=== PATIENT | male | born 1975 | race Caucasian/White ===

== ENCOUNTER 2020-08-03 13:04 | Outpatient (CLI) | payer OTHER ==
--- NOTE | 2020-08-03 13:40 | ULT ---
Exam: Bilateral renal ultrasound HISTORY: Chronic kidney disease COMPARISON: None FINDINGS: Right kidney: Normal cortical echotexture. No hydronephrosis. Right kidney measurements: 611.0 x 6.2 x 6.6 cm. Left kidney: Normal cortical echotexture. No hydronephrosis Left kidney measurements 12.2 x 6.4 x 5.9 cm. Urinary bladder: Normal mucosa. Bladder volume is 70 mL IMPRESSION: No hydronephrosis.
== END 2020-08-03 13:05 | disposition home or self-care (01) ==
LOC: BICULT 13:04
PROVIDERS: ATTEND Internal Medicine Nephrology
DX: N18.30 Chronic kidney disease, stage 3 unspecified (principal)
CPT/HCPCS: 76770; 80048; 82306; 82570; 83970; 84100; 84156; 85014; 85018